=== PATIENT | male | born 1970 | race African-American/Black ===

== ENCOUNTER 2024-12-23 07:10 | Emergency (ER) | payer OTHER ==
[~2024-12-23] VITALS: Ht 170.2 cm; Wt 76.2 kg
[2024-12-23] MEDS ORDERED: NAPROXEN 250 MG TABLET ONE (08:14)
[2024-12-23] MEDS ORDERED: ACETAMINOPHEN ES 500 MG TABLET ONE (08:14)
[2024-12-23] MEDS: NAPROXEN 250 MG TABLET PO ONE (08:18)
[2024-12-23] MEDS: ACETAMINOPHEN ES 500 MG TABLET PO ONE (08:18)
[2024-12-23] MEDS ORDERED: HYDROCODONE/APAP 5/325MG TABLET ONE (10:13)
[2024-12-23] MEDS ORDERED: ACET-2605 PO (10:16)
[2024-12-23] MEDS ORDERED: NAPR-1009 PO (10:16)
[2024-12-23] MEDS: HYDROCODONE/APAP 5/325MG TABLET PO ONE (10:22)
[2024-12-23 11:34] VITALS: BP 142/89; TEMP 98.6; O2SAT 95
== END 2024-12-23 11:36 | disposition home or self-care (01) ==
LOC: ER 07:12
DX: S52.591A Other fractures of lower end of right radius, initial encounter for closed fracture (principal); Z59.00 Homelessness unspecified; W18.39XA Other fall on same level, initial encounter; Y93.89 Activity, other specified; Y92.89 Other specified places as the place of occurrence of the external cause; Y99.8 Other external cause status
CPT/HCPCS: 73110